=== PATIENT | female | born 1940 | race Caucasian/White ===

== ENCOUNTER 2018-08-27 05:35 | Outpatient (CLI) | payer MEDICARE ==
[~2018-08-27] VITALS: Ht 161.3 cm; Wt 74.8 kg
[2018-08-27] MEDS ORDERED: LOSA50TA7 PO (12:05)
[2018-08-27] MEDS ORDERED: METO-333 PO (12:05)
[2018-08-27] MEDS ORDERED: VERA180T5 PO (12:05)
[2018-08-27] MEDS ORDERED: POTA10CA43 PO (12:05)
[2018-08-27] MEDS ORDERED: DIAZ10TA3 PO (12:05)
[2018-08-27] MEDS ORDERED: FURO40TA4 PO (12:05)
[2018-08-27] MEDS ORDERED: MULT-35 PO (12:06)
[2018-08-27] MEDS ORDERED: ASCO10006 PO (12:06)
[2018-08-27] MEDS ORDERED: GARL10002 PO (12:06)
[2018-08-27] MEDS ORDERED: FLAX100031 PO (12:06)
[2018-08-27] MEDS ORDERED: CA C1TAB77 PO (12:06)
[2018-08-27] MEDS ORDERED: OMEP20CA12 PO (12:06)
== END 2018-08-27 12:35 | disposition home or self-care (01) ==
LOC: PREOP 05:35
PROVIDERS: ATTEND Otolaryngology Otolaryngology/Facial Plastic Surgery
DX: Z01.818 Encounter for other preprocedural examination (principal)

== ENCOUNTER 2018-08-29 07:07 | Day surgery (SDC) | payer MEDICARE, OTHER ==
[~2018-08-29] VITALS: Ht 161.3 cm; Wt 74.8 kg
[~2018-08-29 07:07] MED LIST: ASCO10006 PO; CA C1TAB77 PO; DIAZ10TA3 PO; FLAX100031 PO; FURO40TA4 PO; GARL10002 PO; LOSA50TA7 PO; METO-333 PO; MULT-35 PO; OMEP20CA12 PO; POTA10CA43 PO; VERA180T5 PO
[2018-08-29] MEDS: LACTATED RINGERS 1,000 ML IV PRN ×2 (07:30→09:13)
[2018-08-29 07:50] VITALS: BP 134/66
--- NOTE | 2018-08-29 07:52 | Progress Note-Pre Operative ---
Pre-Operative Progress Note H&P Reviewed The H&P was reviewed, patient examined and no changes noted. Date Seen by Provider: Aug 29, 2018 Time Seen by Provider: 07:45 Date H&P Reviewed: Aug 29, 2018 Time H&P Reviewed: 07:45 Pre-Operative Diagnosis: Left NAsal Ala Lesion, NAsal Tip Lesion MONA QUINTANILLA MD Aug 29, 2018 7:52 am
[2018-08-29] MEDS ORDERED: LIDOCAINE/EPI 1%-1:200,000 (XYLOCAINE) 10 ML VIAL ONE (07:58)
[2018-08-29] MEDS ORDERED: MUPIROCIN 2% OINT 22 GM (BACTROBAN) TUBE ONE (07:58)
[2018-08-29] MEDS ORDERED: fentaNYL INJECTION 100 MCG/2 ML AMP ONE (08:09)
[2018-08-29] MEDS ORDERED: MIDAZOLAM 2 MG/2 ML (VERSED) VIAL ONE (08:10)
[2018-08-29] MEDS ORDERED: ATROPINE INJ 0.4 MG/ML SDV ONE (08:44)
[2018-08-29] MEDS ORDERED: ONDANSETRON 4 MG/2 ML (SDV) Z0FRAN ONE ×2 (09:02→09:04)
[2018-08-29] MEDS ORDERED: LIDOCAINE PF 2% 5 ML (XYLOCAINE) VIAL ONE (09:02)
[2018-08-29] MEDS ORDERED: proPOfol 200 MG/20 ML (DIPRIVAN) VIAL IV ONE ×2 (09:02→09:53)
[2018-08-29] MEDS ORDERED: ROCURONIUM 10 MG/ML 5 ML SYRINGE IV ONE (09:03)
[2018-08-29] MEDS ORDERED: ISOFLURANE (FORANE) 15 ML/15 MIN INHALATION ONE ×7 (09:03→11:12)
[2018-08-29] MEDS ORDERED: SEVOFLURANE (ULTANE) 15 ML INHAL SOLN ONE ×2 (09:03→09:04)
[2018-08-29] MEDS ORDERED: PHENYLEPHRINE 100 MCG/ML 10 ML (ANESTHESIA) SYR ONE (09:04)
[2018-08-29] MEDS ORDERED: BSS 15 ML ONE ×2 (09:27→11:12)
--- NOTE | 2018-08-29 09:49 | Progress Note-Post Operative ---
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 Specimen(s) collected/removed minimal MONA QUINTANILLA MD Aug 29, 2018 9:49 am
[2018-08-29] MEDS ORDERED: HYDROcodone/APAP 5 MG/325 MG (LORTAB) TAB PO PRN (10:00)
[2018-08-29] MEDS ORDERED: ACETAMINOPHEN 325 MG TABLET PO PRN (10:00)
[2018-08-29] MEDS ORDERED: ONDANSETRON 4 MG/2 ML (SDV) Z0FRAN IVP PRN (11:00)
[2018-08-29] MEDS ORDERED: MEPERIDINE (DEMEROL) INJ 50 MG/ML IVP ONE (11:00)
[2018-08-29] MEDS ORDERED: morphine INJ 10 MG/ML 1ML (SYR OR VIAL) IVP ONE (11:00)
[2018-08-29] MEDS ORDERED: HYDR-3812 PO (11:07)
[2018-08-29] MEDS ORDERED: CEPH-507 PO (11:07)
[2018-08-29] MEDS ORDERED: morphine INJ 10 MG/ML 1ML (SYR OR VIAL) ONE (11:35)
[2018-08-29 12:05] VITALS: BP 102/50
[2018-08-29 12:35] VITALS: BP 103/53
--- NOTE | 2018-08-29 12:52 | Anesthesia-General Post-Op ---
General Patient Condition Mental Status/LOC: Same as Preop Cardiovascular: Satisfactory Nausea/Vomiting: Absent Respiratory: Satisfactory Pain: Controlled Complications: Absent Post Op Complications Complications None Follow Up Care/Instructions Patient Instructions None needed. Anesthesia/Patient Condition Patient Condition Patient is doing well, no complaints, stable vital signs, no apparent adverse anesthesia problems. No complications reported per nursing. BERNARDO MONTIEL CRNA Aug 29, 2018 12:52
[2018-08-29 13:05] VITALS: BP 101/55
[2018-08-29 14:05] VITALS: BP 110/59
[2018-08-29 14:45] VITALS: BP 110/59
== END 2018-08-29 14:45 | disposition home or self-care (01) ==
LOC: SDC 07:07
PROVIDERS: ATTEND Otolaryngology Otolaryngology/Facial Plastic Surgery
DX: C44.311 Basal cell carcinoma of skin of nose (principal); I10 Essential (primary) hypertension; J45.909 Unspecified asthma, uncomplicated; G47.33 Obstructive sleep apnea (adult) (pediatric); K21.9 Gastro-esophageal reflux disease without esophagitis; Z79.899 Other long term (current) drug therapy
CPT/HCPCS: 87081

== ENCOUNTER → 2020-04-28 | Outpatient (CLI) | payer MEDICARE, OTHER ==
[~2020-04-28] MED LIST changes: +ACHD5005 PO; +CEPH-507 PO; +LOSA50TA63 PO; -LOSA50TA7 PO; -OMEP20CA12 PO; +OMEP20CA18 PO; +VERA180T11 PO; -VERA180T5 PO
--- NOTE | 2020-04-28 14:18 | Diagnostic Imaging Report ---
INDICATION: Left knee pain. COMPARISON: None. FINDINGS: Three views of the left knee joint demonstrate no acute fracture or dislocation. No focal osseous lesions are seen. No significant joint effusion is seen. The surrounding soft tissue structures are unremarkable. There are no radiopaque foreign bodies. IMPRESSION: 1. No acute fractures or dislocations of the left knee joint. Dictated by: Dictated on workstation # [id number]
--- NOTE | 2020-04-28 14:18 | Diagnostic Imaging Report ---
INDICATION: Left hip pain. COMPARISON: None. FINDINGS: 2 views of the left hip were obtained and show no fractures, dislocations, or other acute bony abnormalities. Joint spaces are well maintained throughout. The soft tissues appear unremarkable. No radiopaque foreign bodies are identified. IMPRESSION: Unremarkable radiographic exam of the left hip. Dictated by: Dictated on workstation # [id number]
== END ==
LOC: RAD FS 13:43
PROVIDERS: ATTEND Nurse Practitioner Family
DX: M25.562 Pain in left knee (principal); M25.552 Pain in left hip
CPT/HCPCS: 73502; 73562

== ENCOUNTER 2021-05-01 19:43 | Emergency (ER) | payer MEDICARE, OTHER ==
[~2021-05-01 19:43] MED LIST changes: +ASCO100024 PO; -ASCO10006 PO
--- NOTE | 2021-05-01 19:48 | ED Integumentary General ---
General Stated Complaint: LEFT LEG LACERATION History of Present Illness Date Seen by Provider: May 01, 2021 Time Seen by Provider: 19:48 Initial Comments 80-year-old female presents with left leg laceration. Patient was out moving a sprinkler when she accidentally got her leg hit by the sprinkler. She suffered a skin avulsion on the lower leg lateral aspect. She reports that she up-to-date on her tetanus. She denies any other injuries. Allergies and Home Medications Allergies Coded Allergies: benzocaine (Verified Allergy, Mild, PONV, 08/27/18) Home Medications Ascorbic Acid 1,000 Mg Tablet, 1,000 MG PO DAILY, (Reported) Ca Citrate/Mgox/Vit D3/B6/Min 1 Each Tablet, 1 EACH PO BID, (Reported) Cephalexin 500 Mg Capsule, 500 MG PO TID Prescribed by: RICCARDO CARPENTER on 08/29/181106 Diazepam 10 Mg Tablet, 5 MG PO HS, (Reported) Flaxseed Oil 1,000 Mg Capsule, 1,000 MG PO DAILY, (Reported) Furosemide 40 Mg Tablet, 40 MG PO DAILY, (Reported) Garlic 1,000 Mg Capsule, 1,000 MG PO DAILY, (Reported) Hydrocodone Bit/Acetaminophen 1 Each Tablet, 1 EACH PO Q4-6HR PRN for PAIN- MODERATE Prescribed by: RICCARDO CARPENTER on 08/29/181106 Losartan Potassium 50 Mg Tablet, 50 MG PO DAILY, (Reported) Metoprolol Tartrate 25 Mg Tablet, 25 MG PO BID, (Reported) Multivitamin 1 Each Tablet, 0.5 EACH PO BID, (Reported) Omeprazole 20 Mg Capsule.dr, 20 MG PO DAILY, (Reported) Potassium Chloride 10 Meq Capsule.er, 10 MEQ PO DAILY, (Reported) Verapamil HCl 180 Mg Tablet.er, 180 MG PO BID, (Reported) Patient Home Medication List Home Medication List Reviewed: Yes Review of Systems Review of Systems Constitutional: no symptoms reported EENTM: no symptoms reported Respiratory: no symptoms reported Cardiovascular: no symptoms reported Gastrointestinal: no symptoms reported Genitourinary: no symptoms reported Musculoskeletal: see HPI Skin: see HPI Psychiatric/Neurological: No Symptoms Reported Endocrine: No Symptoms Reported Past Mwsutbl-Nrbney-Zttktb Hx Seasonal Allergies Seasonal Allergies: Yes Past Medical History Hysterectomy Asthma, Sleep Apnea Currently Using CPAP: Yes Hypertension Reproductive Disorders: No Sexually Transmitted Disease: No HIV/AIDS: No Gastroesophageal Reflux Arthritis, Chronic Back Pain Loss of Vision: Bilateral Hearing Impairment: Denies Breast What Type of Treatment Did You: Surgical Intervention Adverse Reaction/Blood Tranf: No (N/A) Physical Exam Vital Signs Vital Signs - First Documented 05/01/21 19:52 Pulse 85 Resp 16 B/P (MAP) 142/60 (87) Pulse Ox 97 O2 Delivery Room Air Capillary Refill : General Appearance: WD/WN, no apparent distress Cardiovascular: normal peripheral pulses, regular rate, rhythm Respiratory: lungs clear, normal breath sounds Gastrointestinal: non tender, soft Extremities: normal range of motion, non-tender Skin Problem Location: lower extremities Skin Problem Character: other (Irregular skin avulsion approximately 7 cm long) Procedures/Interventions Wound Length (cm): 7 Wound's Depth, Shape: superficial, irregular Wound Explored: clean Other Closure Supply: Wound Adhesive Number of Sutures: 2 Progress Patient with an irregular skin avulsion. I was able to closely approximate the wound edges. On the medial aspect the skin was thick enough to allow for 2 absorbable sutures to be placed to help approximate the skin. On the rest of the wound the skin was closely approximated and skin adhesive was used to help hold it in position. Patient tolerated well. With no immediate complications Progress/Results/Core Measures Results/Orders Vital Signs/I&O 05/01/21 05/01/21 19:52 20:38 Pulse 85 85 Resp 16 16 B/P (MAP) 142/60 (87) 142/60 (87) Pulse Ox 97 97 O2 Delivery Room Air Room Air Departure Impression Primary Impression: Avulsion of skin of left lower leg Qualified Codes: S81.802A - Unspecified open wound, left lower leg, initial encounter Disposition: 01 HOME, SELF-CARE Condition: Stable Departure-Patient Inst. Referrals: FARHAD SANCHEZ APRN (PCP/Family) Primary Care Physician Patient Instructions: Wound Care (DC) Add. Discharge Instructions: Follow-up with your primary care provider in 3 to 4 days for recheck of your wound and possible wound care consultation Leave sterile dressing on for 24 hours. Do not submerge in water for 36 to 48 hours. Keep clean with warm soapy water TERE AGUILAR DO May 01, 2021 19:48
[2021-05-01 20:38] VITALS: BP 142/60
== END 2021-05-01 20:41 | disposition home or self-care (01) ==
LOC: EDUNIT# 19:43 → ER FS 19:44
DX: S81.802A Unspecified open wound, left lower leg, initial encounter (principal); I10 Essential (primary) hypertension; J45.909 Unspecified asthma, uncomplicated; G47.33 Obstructive sleep apnea (adult) (pediatric); K21.9 Gastro-esophageal reflux disease without esophagitis; G89.29 Other chronic pain; M54.9 Dorsalgia, unspecified; Z99.89 Dependence on other enabling machines and devices; Z79.891 Long term (current) use of opiate analgesic; Z79.899 Other long term (current) drug therapy; W26.8XXA Contact with other sharp object(s), not elsewhere classified, initial encounter
CPT/HCPCS: 12031

== ENCOUNTER 2022-06-30 08:18 | Emergency (ER) | payer MEDICARE, OTHER ==
[~2022-06-30] VITALS: Ht 157.5 cm; Wt 77.1 kg
[~2022-06-30 08:18] MED LIST changes: -VERA180T11 PO; +VERA180T55 PO
[2022-06-30 08:20] VITALS: BP 138/56
[2022-06-30] MEDS ORDERED: ONDANSETRON 4 MG (ZOFRAN) ORAL DISSOLVE TAB PO STA (08:33)
--- NOTE | 2022-06-30 08:36 | ED General ---
General Chief Complaint: General Problems/Pain Stated Complaint: RT HIP PAIN Source of Information: Patient, EMS Exam Limitations: No Limitations History of Present Illness Date Seen by Provider: Jun 30, 2022 Time Seen by Provider: 08:23 Initial Comments 82-year-old female with past medical history most notable for hypertension coming in due to right flank pain. Started about a day ago, constant, throbbing, better when she lays on her right side, worse when she is laying flat on her back. Does not really radiate anywhere, just stays more in her right buttock area. She denies ever having pain like this before. She says she has had sciatica on the other side but it felt different. Denies any weakness, numbness, dysuria, hematuria, abdominal pain, chest pain, shortness of breath, vomiting, diarrhea, rash, or any other concerns. Does endorse some nausea when the pain is bad. Took half a hydrocodone last night which did help with the pain. Allergies and Home Medications Allergies Coded Allergies: benzocaine (Verified Allergy, Mild, PONV, 08/27/18) Patient Home Medication List Home Medication List Reviewed: Yes Ascorbic Acid (Vitamin C) 1,000 Mg Tablet, 1,000 MG PO DAILY, (Reported) Entered as Reported by: APARNA DIAMOND on 08/27/18 1206 Ca Citrate/Mgox/Vit D3/B6/Min (Calcium Citrate Plus Tablet) 1 Each Tablet, 1 EAC H PO BID, (Reported) Entered as Reported by: APARNA DIAMOND on 08/27/18 1206 Cephalexin (Keflex) 500 Mg Capsule, 500 MG PO TID Prescribed by: RICCARDO CARPENTER on 08/29/18 1107 Diazepam (Diazepam) 10 Mg Tablet, 5 MG PO HS, (Reported) Entered as Reported by: APARNA DIAMOND on 08/27/18 1205 Flaxseed Oil (Flax Seed Oil) 1,000 Mg Capsule, 1,000 MG PO DAILY, (Reported) Entered as Reported by: APARNA DIAMOND on 08/27/18 1206 Furosemide (Furosemide) 40 Mg Tablet, 40 MG PO DAILY, (Reported) Entered as Reported by: APARNA DIAMOND on 08/27/18 1205 Garlic (Garlic) 1,000 Mg Capsule, 1,000 MG PO DAILY, (Reported) Entered as Reported by: APARNA DIAMOND on 08/27/18 1206 Hydrocodone Bit/Acetaminophen (Lortab 5 Mg Tablet) 1 Each Tablet, 1 EACH PO Q4- 6HR PRN for PAIN-MODERATE Prescribed by: RICCARDO CARPENTER on 08/29/18 1107 Losartan Potassium (Losartan Potassium) 50 Mg Tablet, 50 MG PO DAILY, (Reported) Entered as Reported by: APARNA DIAMOND on 08/27/18 1205 Metoprolol Tartrate (Metoprolol Tartrate) 25 Mg Tablet, 25 MG PO BID, (Reported) Entered as Reported by: APARNA DIAMOND on 08/27/18 120 Multivitamin (Daily Multiple Vitamin) 1 Each Tablet, 0.5 EACH PO BID, (Reported) Entered as Reported by: APARNA DIAMOND on 08/27/18 120 Omeprazole (Omeprazole) 20 Mg Capsule.dr, 20 MG PO DAILY, (Reported) Entered as Reported by: APARNA DIAMOND on 08/27/18 120 Potassium Chloride (Potassium Chloride) 10 Meq Capsule.er, 10 MEQ PO DAILY, (Reported) Entered as Reported by: APARNA DIAMOND on 08/27/18 120 Verapamil HCl (Verapamil ER) 180 Mg Tablet.er, 180 MG PO BID, (Reported) Entered as Reported by: APARNA DIAMOND on 08/27/18 1205 Review of Systems Review of Systems Constitutional: No fever EENTM: No blurred vision Respiratory: No cough Cardiovascular: No chest pain Gastrointestinal: No abdominal pain Genitourinary: other (Difficulty starting urination and right flank pain) Musculoskeletal: back pain Skin: no symptoms reported Psychiatric/Neurological: No Symptoms Reported Hematologic/Lymphatic: No Symptoms Reported Immunological/Allergic: no symptoms reported All Other Systems Reviewed Negative Unless Noted: Yes Past Rqpbpdd-Oduetk-Mebfhr Hx Patient Social History Tobacco Use?: No Seasonal Allergies Seasonal Allergies: Yes Past Medical History Surgeries: Yes (laminectomy) Hysterectomy Asthma, Sleep Apnea Currently Using CPAP: Yes Hypertension Reproductive Disorders: No Sexually Transmitted Disease: No HIV/AIDS: No Gastroesophageal Reflux Arthritis, Chronic Back Pain Loss of Vision: Bilateral Hearing Impairment: Denies Breast What Type of Treatment Did You: Surgical Intervention Adverse Reaction/Blood Tranf: No (N/A) Physical Exam Vital Signs Vital Signs - First Documented 06/30/22 08:20 Temp 36.6 Pulse 78 Resp 18 B/P (MAP) 138/56 (83) Pulse Ox 97 O2 Delivery Room Air Capillary Refill : Height, Weight, BMI Height: 5'3.50" Weight: 165lbs. 0.0oz. 74.855333tz; 28.8 BMI Method: General Appearance: No Apparent Distress, WD/WN Eyes: Bilateral Eye Normal Inspection HEENT: PERRL/EOMI, Normal ENT Inspection, Pharynx Normal Neck: Full Range of Motion, Normal Inspection, Non Tender, Supple Respiratory: Chest Non Tender, Lungs Clear, Normal Breath Sounds, No Accessory Muscle Use, No Respiratory Distress Cardiovascular: Regular Rate, Rhythm, No Edema, Normal Peripheral Pulses Gastrointestinal: Normal Bowel Sounds, Non Tender, Soft; No Distended, No Guarding Back: Normal Inspection, No Vertebral Tenderness, CVA Tenderness (R) Extremity: Normal Capillary Refill, Normal Inspection, Normal Range of Motion, Non Tender, No Calf Tenderness, No Pedal Edema Neurologic/Psychiatric: Alert, No Motor/Sensory Deficits, Normal Mood/Affect, Other (Normal gait, negative straight leg test) Skin: Normal Color, Warm/Dry Lymphatic: No Adenopathy Progress/Results/Core Measures Suspected Sepsis SIRS Temperature: Pulse: Respiratory Rate: Blood Pressure / Mean: Results/Orders My Orders Orders - WILMER CARRASCO MD Ua Culture If Indicated (06/30/22 08:33) Ct Abdomen/Pelvis Wo (06/30/22 08:33) Hydrocodone/Apap 5/325 Tablet (Lortab 5 (06/30/22 08:45) Ondansetron Oral Dissolve Tab (Zofran (06/30/22 08:33) Medications Given in ED Current Medications Medications Dose Ordered Sig/Maulik Route Start Time Stop Time Status Last Admin Dose Admin Acetaminophen/ Hydrocodone Bitart 1 ea ONCE ONCE PO 06/30/22 08:45 06/30/22 08:46 DC 06/30/22 08:46 1 EA Vital Signs/I&O 06/30/22 08:20 Temp 36.6 Pulse 78 Resp 18 B/P (MAP) 138/56 (83) Pulse Ox 97 O2 Delivery Room Air Capillary Refill : Progress Note : Progress Note 82-year-old female with above history coming in due to right lower back/buttock pain. ABCs were intact and vitals were stable on presentation. I was unable to really get the patient to have the pain on palpation, although she points along her ischium on the right. Straight leg test is negative and she is neuro intact with no weakness or numbness. Given the nebulous nests of the exam, CT abdomen pelvis without contrast ordered. She does have severe degenerative changes in her lumbar spine which were the only significantly abnormal findings. It is likely that this is radicular in nature from not. I will have her follow-up with her orthopedist. Diagnostic Imaging Diagonstic Imaging: CT Plain Films/CT/US/NM/MRI: abdomen, pelvis Comments NAME: [facility] REC#: [id number] PT STATUS: REG ER : 1940 PHYSICIAN: WILMER CARRASCO MD ADMIT DATE: 06/30/22/ER FS Draft Date of Exam:06/30/22 CT ABDOMEN/PELVIS WO PROCEDURE: CT abdomen and pelvis without contrast. TECHNIQUE: Multiple contiguous axial images were obtained through the abdomen and pelvis without the use of intravenous contrast. Auto Exposure Controls were utilized during the CT exam to meet ALARA standards for radiation dose reduction. INDICATION: 82-year-old female, right flank and hip pain x 2 days, worsening severity today. CORRELATION STUDY: None. FINDINGS: LOWER THORAX: Clear. Heart size normal with presence of pacemaker leads. Calcification in the mitral valve. LIVER: Unremarkable on unenhanced imaging. GALLBLADDER: Present and unremarkable. No bile duct dilatation. SPLEEN: Unremarkable. PANCREAS: 10 mm likely cyst in the posterior mid pancreatic body. ADRENAL GLANDS: Unremarkable. KIDNEYS: Low-density masses of the inferior pole of the right kidney, compatible with cysts. 7 mm nonobstructing stone in the inferior pole of the right kidney. No ureteric calcification or obstructive uropathy. ABDOMINAL AORTA: Moderate abdominal aortic wall calcification, nonaneurysmal. No pathologically enlarged aortocaval lymph nodes. There are a few shotty scattered mesenteric nodes. GASTROINTESTINAL TRACT: Stomach is relatively decompressed. No small bowel obstruction. Normal appendix. Colonic diverticulosis without evidence for acute diverticulitis. No significant ascites. URINARY BLADDER: Unremarkable. REPRODUCTIVE: Hysterectomy. Nonspecific high density at the base of the bladder. OSSEOUS STRUCTURES: Mild, likely degenerative spondylolisthesis of L4 on L5. There is fusion across the L5-S1 disc space. Significant foraminal narrowing at this level. There is also marked foraminal narrowing at the L4-L5 level owing to disc bulge, left greater than right. Additional foraminal narrowing at the L3-L4 and L2-L3 levels. Spinal canal narrowing at the L2-L3, L3-L4, and L4-L5 levels. OTHER: None. IMPRESSION: 1. Negative for acute abnormality of the abdomen or pelvis on noncontrast imaging. 2. Nonobstructing right renal stone and right renal cyst. No obstructive uropathy. 3. Colonic diverticulosis without diverticulitis. 4. 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 Various degrees of significant foraminal and spinal canal narrowing. Dictated on workstation # [id number] Dict: 06/30/22 0855 Trans: 06/30/22 0908 [id number] Interpreted by: RASTA RAINES DO Electronically signed by: Departure Impression Primary Impression: Right buttock pain Disposition: 01 HOME, SELF-CARE Condition: Stable Departure-Patient Inst. Decision time for Depature: 09:15 Referrals: FARHAD SANCHEZ APRN (PCP) Primary Care Physician [facility] (Family) Primary Care Physician Patient Instructions: Sciatica Add. Discharge Instructions: Based on your imaging I do believe this pain is radiating from your lower back aggravating those nerves. You can try the lidocaine patch right where you are the most. You can also continue to take your hydrocodone as needed. Heating pads may also be effective, but do not use this at the same time as the lidocaine patch as you may accidentally burn yourself. I would recommend f ollowing up with an orthopedist, if you do not have one, Dr. Samuels's number is in this paperwork. Scripts Lidocaine (Lidocaine 5% Patch) 5 % Adh..patch 1 EACH TP Q12H PRN for Neuropathic pain MDD 2 for 14 Days, #28 PATCH 2 patches max for 12 hours, then 12 hours patch-free period. Prov: WILMER CARRASCO MD 06/30/22 WILMER CARRASCO MD Jun 30, 2022 08:36
[2022-06-30] MEDS ORDERED: HYDROcodone/APAP 5 MG/325 MG (LORTAB) TAB PO ONE (08:45)
--- NOTE | 2022-06-30 09:08 | Diagnostic Imaging Report ---
PROCEDURE: CT abdomen and pelvis without contrast. TECHNIQUE: Multiple contiguous axial images were obtained through the abdomen and pelvis without the use of intravenous contrast. Auto Exposure Controls were utilized during the CT exam to meet ALARA standards for radiation dose reduction. INDICATION: 82-year-old female, right flank and hip pain x 2 days, worsening severity today. CORRELATION STUDY: None. FINDINGS: LOWER THORAX: Clear. Heart size normal with presence of pacemaker leads. Calcification in the mitral valve. LIVER: Unremarkable on unenhanced imaging. GALLBLADDER: Present and unremarkable. No bile duct dilatation. SPLEEN: Unremarkable. PANCREAS: 10 mm likely cyst in the posterior mid pancreatic body. ADRENAL GLANDS: Unremarkable. KIDNEYS: Low-density masses of the inferior pole of the right kidney, compatible with cysts. 7 mm nonobstructing stone in the inferior pole of the right kidney. No ureteric calcification or obstructive uropathy. ABDOMINAL AORTA: Moderate abdominal aortic wall calcification, nonaneurysmal. No pathologically enlarged aortocaval lymph nodes. There are a few shotty scattered mesenteric nodes. GASTROINTESTINAL TRACT: Stomach is relatively decompressed. No small bowel obstruction. Normal appendix. Colonic diverticulosis without evidence for acute diverticulitis. No significant ascites. URINARY BLADDER: Unremarkable. REPRODUCTIVE: Hysterectomy. Nonspecific high density at the base of the bladder. OSSEOUS STRUCTURES: Mild, likely degenerative spondylolisthesis of L4 on L5. There is fusion across the L5-S1 disc space. Significant foraminal narrowing at this level. There is also marked foraminal narrowing at the L4-L5 level owing to disc bulge, left greater than right. Additional foraminal narrowing at the L3-L4 and L2-L3 levels. Spinal canal narrowing at the L2-L3, L3-L4, and L4-L5 levels. OTHER: None. IMPRESSION: 1. Negative for acute abnormality of the abdomen or pelvis on noncontrast imaging. 2. Nonobstructing right renal stone and right renal cyst. No obstructive uropathy. 3. Colonic diverticulosis without diverticulitis. 4. 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 Various degrees of significant foraminal and spinal canal narrowing. Dictated by: Dictated on workstation # [id number]
[2022-06-30] MEDS ORDERED: LIDO700A45 TP (09:13)
== END 2022-06-30 09:24 | disposition home or self-care (01) ==
LOC: EDUNIT# 08:18 → ER FS 08:19
DX: M25.551 Pain in right hip (principal); G47.30 Sleep apnea, unspecified; Z99.89 Dependence on other enabling machines and devices
CPT/HCPCS: 74176

== ENCOUNTER → 2022-12-19 | Outpatient (CLI) | payer MEDICARE, OTHER ==
[~2022-12-19] MED LIST changes: +LIDO700A45 TP; -POTA10CA43 PO; +POTA10CA44 PO
--- NOTE | 2022-12-19 17:27 | Diagnostic Imaging Report ---
EXAMINATION: Chest 2 view. HISTORY: Cough. COMPARISON: None available. FINDINGS: The lungs are clear without edema or pneumonia. No pleural effusion or pneumothorax. Heart size is normal. Left subclavian pacemaker is present. IMPRESSION: Clear lungs. Dictated by: Dictated on workstation # [id number]
== END ==
LOC: RAD FS 12:28
PROVIDERS: ATTEND Nurse Practitioner Family
DX: R05.8 Other specified cough (principal)
CPT/HCPCS: 71046

== ENCOUNTER → 2023-03-06 | Outpatient (CLI) | payer MEDICARE, OTHER ==
[~2023-03-06] MED LIST changes: +RT-ALBUTEROL SULF 2.5 MG/3 ML PRE-MIX VIAL INH ONE
== END ==
LOC: RT 12:29
PROVIDERS: ATTEND Nurse Practitioner Family
DX: J45.30 Mild persistent asthma, uncomplicated (principal)
CPT/HCPCS: 94060; 94726; 94729